=== PATIENT | male | born 1955 | race Two or more races ===

== ENCOUNTER 2025-06-14 12:47 | Day surgery (SDC) | payer MEDICARE, SELFPAY ==
[2025-06-07 11:03] VITALS: BMI 33.5
--- NOTE | 2025-06-08 07:12 | EXP.HP ---
History of Present Illness *Admission Date: 06/14/25 *History of present illness: Mr. Reddy is a 69-year-old gentleman who is here for screening/surveillance colonoscopy. The patient did have a colonoscopy 2 years ago (08/05/2023?Darwin Brian MD at [facility]) and had more than 10 adenomatous colon polyps removed. The examination is deemed medically necessary for screening/surveillance colonoscopy. The patient has been seen, interviewed and examined prior to the procedure by both myself and the anesthesia provider. [facility] Disclaimer: The information contained in this section may have been updated after the patient was seen, as this information can be updated by other users. Medical History Left great toe amputee Shoulder fracture, left Arthritis Anxiety HLD (hyperlipidemia) HTN (hypertension) History of heart attack Surgical History History of brain surgery H/O colonoscopy H/O heart artery stent Family History Other Colon cancer Social History (Updated 06/14/25 @ 13:24 by Jesus Mckinney CRNA) Smoking Status: Former smoker alcohol intake: current substance use type: denies use current occupational status: disabled Travel in the last 8 weeks?: None caffeine: No Have you lived/traveled outside [place] in past 30 days?: No Contact w/someone who lives/traveled outside [place] past 30 days?: No Exposure to someone with infectious disease in past 14 days?: No Do you have a fever (greater than 100.4 F or 38 C)?: No Have you tested positive for COVID-19?: No Exposed to someone with COVID-19 in past 14 days?: No Do you have a sore throat?: No Do you have a cough?: No Do you have any weakness?: No Are you experiencing any nausea/vomitting?: No Do you have any diarrhea?: No Are you experiencing any unusual bleeding?: No Do you have any muscle aches/pain?: No Do you have any abdominal pain?: No Are you experiencing loss of taste or smell?: No Review of Systems Review of Systems Review of systems (narrative): Negative *Cardiovascular Comments: Negative *Gastrointestinal Comments: Negative *Genitourinary Comments: Negative *Musculoskeletal Comments: Negative *Neurologic Comments: Negative Meds Home Medications and Allergies Home Medications ?Medication ?Instructions ?Recorded ?Confirmed ?Type losartan 100 mg tablet 100 mg PO DAILY 06/07/25 06/07/25 History rosuvastatin 20 mg tablet 20 mg PO DAILY 06/07/25 06/07/25 History tamsulosin 0.4 mg capsule 0.4 mg PO HS 06/07/25 06/07/25 History trazodone 100 mg tablet 100 mg PO HS 06/07/25 06/07/25 History aspirin 81 mg capsule 81 mg PO DAILY 06/14/25 06/14/25 History New Prescriptions to Start Prescriptions: Allergies Allergy/AdvReac Type Severity Reaction Status Date / Time No Known Allergies Allergy Verified 06/07/25 10:56 Exam Data for Last 24 hours I & O for Last 24 hours: Intake & Output 06/05/25 06/06/25 06/07/25 06/08/25 23:59 23:59 23:59 23:59 Weight 240 lb *Routine HEENT Exam Head: Present normocephalic Eye: Present EOMI and PERRL ENT: Present mucous membranes moist *Routine Neck Exam Neck: Present supple *Routine Respiratory Exam Respiratory: Present CTA bilaterally *Routine Cardiovascular Exam Cardiovascular: Present RRR *Routine Abdominal Exam Abdominal: Present soft and normoactive bowel sounds; Absent tenderness *Routine Rectal Exam Rectal:: deferred *Routine Genitalia Exam Genitalia:: deferred *Routine Extremities Exam Extremities: Absent cyanosis, clubbing or edema *Routine Skin Exam Skin: Present warm; Absent rash *Routine Neurological Exam Neurological: Present alert and oriented X3 Assessment and Plan *Assessment and plan (1) Personal history of adenomatous and serrated colon polyps: Status: Acute Category: Medical Code(s): Z86.0101 - Personal history of adenomatous and serrated colon polyps (2) Screening for colon cancer: Status: Acute Category: Medical Code(s): Z12.11 - Encounter for screening for malignant neoplasm of colon Plan A/P: 1. Personal history of adenomatous colon polyps is the preprocedural diagnosis. The patient will be anesthetized/sedated using MAC sedation. The patient has been seen and examined. Cardiac and lung assessment prior to the examination is stable. Proceed with planned screening colonoscopy.
--- NOTE | 2025-06-14 07:09 | P.PCN_ITS ---
[facility] Procedure Note Date: 06/14/25 Time: 14:13 Procedure Note:: Colonoscopy Procedure Report (to hepatic flexure): Colonoscopy with cold snare polypectomy Endoscopist: Braxton Segundo II, MD Referring physician: Elbert Lambert M.D. Date of Procedure: June 14, 2025 Equipment: Massive Analytic [id number] adult colonoscope Sedation: MAC sedation Indication: Mr. Reddy is a 69-year-old gentleman who is here for screening/surveillance colonoscopy. The patient did have a colonoscopy 2 years ago (08/05/2023?Darwin Brian MD at [facility]) and had more than 10 adenomatous colon polyps removed. The patient does state that his father had advanced colon cancer and passed at the age of 63. He does have some mild chronic constipation for which he takes Dulcolax. He reports no abdominal pain, weight loss or rectal bleeding. The examination is deemed medically necessary for screening/surveillance colonoscopy. Procedure: Prior to the procedure, a history and physical exam was performed, and patient's medications and allergies were reviewed. The risks, benefits and alternatives of the sedation and procedure were discussed with the patient. All questions were answered and informed consent was obtained. The patient was brought to the procedure room. Patient identification and proposed procedure were verified by the physician and the nurse. The patient was placed in a left lateral decubitus position and the scope was passed under direct vision. Throughout the procedure, the patient's blood pressure, pulse, and oxygen saturations were monitored continuously. The colonoscopy was accomplished without difficulty. The patient tolerated the procedure well. Findings: On digital rectal examination there was normal rectal tone. There were no external hemorrhoids. The prostate was 2+, smooth, soft, symmetric without nodules. The colonoscope was introduced through the anal canal to the rectum and advanced to the hepatic flexure. Because of significant looping/colonic redundancy, even abdominal pressure could not advance the scope fully to the cecum. There were 2 colon polyps (descending x 1 (5 mm) and sigmoid x 1 (4 mm)). These were both removed via cold snare polypectomy. Upon withdrawal from the hepatic flexure, the remaining transverse, descending, sigmoid and rectum were grossly normal. There were no other mucosal abnormalities identified. Upon retroflexion within the rectum there were grade 1-2 internal hemorrhoids. There was a lot of yellow liquid (prep liquid and stool/bile liquid) that was suctioned out. Impression: 1. Diminutive colonic polyps x 2 2. Marked colonic redundancy and colonoscopy completed to the hepatic flexure (but not to cecum) Plan: I will discuss the case with the patient and family. Based on the patient's prior numerous adenomatous polyps and family history, I do still feel that the right colon should be surveilled. I would consider virtual colonography.
[2025-06-14 13:07] VITALS: BP 148/69; PULSE 80; RESP 16; TEMP 37; O2SAT 93
[2025-06-14] MEDS: LACTATED RINGERS 1000ML 1,000 ML 50 ML IV (13:15)
--- NOTE | 2025-06-14 13:24 | EXP.ANES.CKL ---
[facility] Disclaimer: The information contained in this section may have been updated after the patient was seen, as this information can be updated by other users. Medical History Left great toe amputee Shoulder fracture, left Arthritis Anxiety HLD (hyperlipidemia) HTN (hypertension) History of heart attack Surgical History History of brain surgery H/O colonoscopy H/O heart artery stent Family History Other Colon cancer Social History Smoking Status: Former smoker alcohol intake: current substance use type: denies use current occupational status: disabled Travel in the last 8 weeks?: None caffeine: No [facility] Anesthesia Checklist Patient Identification Patient Identification: Verbal (Name & ) Structural Data Admitted From: Home Planned Operative Procedure/s: colonoscopy Consent for Planned Operative Procedure(s) Verified: Yes NPO Status Verified Time NPO: 00:00 Airway Assessment Mallampati Score:: Class II C-Spine Mobility Assessed: Yes TMJ Mobility Assessed: Yes Dentition: Poor Dentition Neurological Assessment Level of Consciousness: Awake, Alert and Appropriate Anesthesia Plan Anesthesia Risk discussed: Yes Anesthesia Plan: Verified ASA Class: II Anesthesia Type: MAC
[2025-06-14 14:15] VITALS: BP 101/64; PULSE 84; RESP 18; TEMP 36.1; O2SAT 92
[2025-06-14 14:25] VITALS: BP 94/60; PULSE 72; O2SAT 93
[2025-06-14 14:35] VITALS: BP 103/61; PULSE 74; O2SAT 95
== END 2025-06-14 14:45 | disposition home or self-care (01) ==
PROVIDERS: PCP Internal Medicine Adolescent Medicine; Visit Provider Internal Medicine Gastroenterology
PROC: 0DJD8ZZ Inspection of Lower Intestinal Tract, Via Natural or Artificial Opening Endoscopic (ICD-10-PCS; CPT 45378; principal; 2025-06-14 14:30)
DX: Z12.11 Encounter for screening for malignant neoplasm of colon (principal); D12.5 Benign neoplasm of sigmoid colon; D12.4 Benign neoplasm of descending colon; K64.0 First degree hemorrhoids; K64.1 Second degree hemorrhoids; I10 Essential (primary) hypertension; E78.5 Hyperlipidemia, unspecified; F41.9 Anxiety disorder, unspecified; Z86.0101 Personal history of adenomatous and serrated colon polyps; Z79.82 Long term (current) use of aspirin; Z80.0 Family history of malignant neoplasm of digestive organs; Z87.891 Personal history of nicotine dependence
CPT/HCPCS: 45385; 88305; J2003; J2704; J7120